=== PATIENT | male | born 1980 | race Caucasian/White ===

== ENCOUNTER 2017-10-24 04:07 | Emergency (ER) | payer BC ==
[2017-10-24] MEDS ORDERED: Ketorolac 60 MG/2 ML SDV IM ONE (04:45)
--- NOTE | 2017-10-24 05:18 | EDM.PDOC ---
ED HPI GENERAL MEDICAL PROBLEM - General Chief Complaint: General Stated Complaint: GOUT- RIGHT KNEE Time Seen by Provider: 10/24/17 04:42 - History of Present Illness INITIAL COMMENTS - FREE TEXT/NARRATIVE: HISTORY AND PHYSICAL: History of present illness: Patient 37-year-old male history of gouty arthritis presents a concern of right knee pain he states is typical gouty flareup that responds well to Toradol. Review of systems: As per history of present illness and below otherwise all systems reviewed and negative. Past medical history: As per history of present illness and as reviewed below otherwise noncontributory. Surgical history: As per history of present illness and as reviewed below otherwise noncontributory. Social history: No reported history of drug or alcohol abuse. Family history: As per history of present illness and as reviewed below otherwise noncontributory. Physical exam: HEENT: Atraumatic, normocephalic, pupils reactive, negative for conjunctival pallor or scleral icterus, mucous membranes moist, throat clear, neck supple, nontender, trachea midline. Lungs: Clear to auscultation, breath sounds equal bilaterally, chest nontender. Heart: S1S2, regular, negative for clicks, rubs, or JVD. Abdomen: Soft, nondistended, nontender. Negative for masses or hepatosplenomegaly. Negative for costovertebral tenderness. Pelvis: Stable nontender. Genitourinary: Deferred. Rectal: Deferred. Extremities: Right knee has some pain to palpation minimal swelling no erythema no warmth CMS neurovascular is unremarkable Neuro: Awake, alert, oriented. Cranial nerves II through XII unremarkable. Cerebellum unremarkable. Motor and sensory unremarkable throughout. Exam nonfocal. Diagnostics: Patient refused x-ray and lab analysis Therapeutics: Toradol 60 mg IM Impression: #1 right knee pain history of gouty arthritis Definitive disposition and diagnosis as appropriate pending reevaluation and review of above. - Related Data Allergies Allergy/AdvReac Type Severity Reaction Status Date / Time No Known Allergies Allergy Verified 01/06/15 23:21 Home Meds: Home Meds Allopurinol [Zyloprim] 1 tab PO DAILY 03/14/16 [History] Colchicine [Colcrys] 1.5 - 2 tab PO ASDIRECTED PRN 03/14/16 [History] Past Medical History HEENT History: Reports: None Other HEENT History: strep throat Cardiovascular History: Reports: None Respiratory History: Reports: Other (See Below) Other Respiratory History: hx sports induced asthma as a child Gastrointestinal History: Reports: None Genitourinary History: Reports: Other (See Below) Other Genitourinary History: intermittent hematuria, Musculoskeletal History: Reports: Gout Other Musculoskeletal History: Preston schlatters L need Neurological History: Reports: None Psychiatric History: Reports: None Hematologic History: Reports: None Immunologic History: Reports: None Oncologic (Cancer) History: Reports: None Dermatologic History: Reports: None - Infectious Disease History Infectious Disease History: Reports: Chicken Pox - Past Surgical History Head Surgeries/Procedures: Reports: None Musculoskeletal Surgical History: Reports: Arthroscopic Knee Social & Family History - Family History Family Medical History: Noncontributory - Tobacco Use Smoking Status *Q: Never Smoker - Recreational Drug Use Recreational Drug Use: No ED ROS GENERAL - Review of Systems Review Of Systems: ROS reveals no pertinent complaints other than HPI. ED EXAM, GENERAL - Physical Exam Exam: See Below (See dictation) Course - Vital Signs Last Recorded V/S: Last Vital Signs Temp 36.6 C 10/24/17 04:11 Pulse 82 10/24/17 04:11 Resp 16 10/24/17 04:11 BP 107/57 L 10/24/17 04:11 Pulse Ox 98 10/24/17 04:11 - Orders/Labs/Meds Orders: Active Orders 24 hr Category Date Time Status Knee 3V Rt [CR] Stat Exams 10/24/17 04:15 Stop Req Meds: Medications Discontinued Medications Generic Name Dose Route Start Last Admin Trade Name Freq PRN Reason Stop Dose Admin Ketorolac Tromethamine 60 mg 10/24/17 04:45 10/24/17 05:03 Toradol IM 10/24/17 04:46 60 mg ONETIME ONE Administration Departure - Departure Time of Disposition: 05:17 Disposition: Home, Self-Care 01 Condition: Good Clinical Impression: Knee pain, Gout attack - Discharge Information Referrals: PCP,None [Primary Care Provider] - Additional Instructions: The following information is given to patients seen in the emergency department who are being discharged to home. This information is to outline your options for follow-up care. We provide all patients seen in our emergency department with a follow-up referral. The need for follow-up, as well as the timing and circumstances, are variable depending upon the specifics of your emergency department visit. If you don't have a primary care physician on staff, we will provide you with a referral. We always advise you to contact your personal physician following an emergency department visit to inform them of the circumstance of the visit and for follow-up with them and/or the need for any referrals to a consulting specialist. The emergency department will also refer you to a specialist when appropriate. This referral assures that you have the opportunity for followup care with a specialist. All of these measure are taken in an effort to provide you with optimal care, which includes your followup. Under all circumstances we always encourage you to contact your private physician who remains a resource for coordinating your care. When calling for followup care, please make the office aware that this follow-up is from your recent emergency room visit. If for any reason you are refused follow-up, please contact the [facility] emergency department at and asked to speak to the emergency department charge nurse. [facility] [address] [place] [id number] Indomethacin as prescribed follow-up primary medical doctor and/or clinic above as needed as discussed and return as needed as discussed - My Orders Last 24 Hours: My Active Orders 10/24/17 04:15 Knee 3V Rt [CR] Stat - Assessment/Plan Last 24 Hours: My Active Orders 10/24/17 04:15 Knee 3V Rt [CR] Stat
[2017-10-24 05:26] VITALS: BP 109/57
== END 2017-10-24 05:26 | disposition home or self-care (01) ==
LOC: MW.ED 04:07
DX: M10.9 Gout, unspecified (principal); M25.561 Pain in right knee; Z79.899 Other long term (current) drug therapy
CPT/HCPCS: 96372; 99284; J1885; 99283

== ENCOUNTER 2019-11-12 02:50 | Emergency (ER) | payer BC ==
[2019-11-12] MEDS ORDERED: Ibuprofen 600 MG Tab PO ONE (03:21)
--- NOTE | 2019-11-12 03:50 | EDM.PDOC ---
ED HPI GENERAL MEDICAL PROBLEM - General Chief Complaint: Lower Extremity Injury/Pain Stated Complaint: GOUT ATTACK Time Seen by Provider: 11/12/19 02:51 - History of Present Illness INITIAL COMMENTS - FREE TEXT/NARRATIVE: History of present illness: 39-year-old male presenting with right foot pain for the last week. He reports history of gout for which he usually takes colchicine when the pain worsens. He has been at work all day and the pain just became unbearable so he came straight here. He reports that he had previously been on allopurinol daily but was at a maximal dose and it still was not controlling his gout symptoms so he was prescribed febuxostat, which initially he had been prescribed the brand name and he could not afford this. He was seen 2 days ago at the primary care clinic for this episode of gout and he was prescribed this medication again, however even the generic 1 was more than he could afford so he did not pick it up. He was Toradol and IM Solu- Medrol in the clinic and prescribed steroid Dosepak for discharge which he has been taking for the last 2 days. He did also sustain a plantar puncture wound 1 week ago which is not in the area of the pain. Review of systems: As per history of present illness and below otherwise all systems reviewed and negative. Past medical history: As per history of present illness and as reviewed below otherwise noncontributory. Gout Surgical history: As per history of present illness and as reviewed below otherwise noncontributory. Social history: No reported history of drug or alcohol abuse. Family history: As per history of present illness and as reviewed below otherwise noncontributory. Physical exam: GEN: no acute distress, well appearing HEENT: Atraumatic, normocephalic, mucous membranes moist, Neck: supple. Lungs: No respiratory distress. Heart: RRR Extremities: Tender to palpation right foot. Mildly erythematous over the dorsum of the foot. Plantar surface shows healing puncture wound that appears clean and dry with no surrounding erythema and no signs of infection. Neurovascularly intact. Neuro: Awake, alert, oriented. Neuro Exam nonfocal. Skin: warm, dry, no lesions, very mild erythema of the dorsum of the foot Diagnostics: [] Therapeutics: [] MDM: Impression: [] Plan: [] Definitive disposition and diagnosis as appropriate pending reevaluation and review of above. Right Feet Pain Score (Numeric/FACES): 10 - Related Data Allergies Allergy/AdvReac Type Severity Reaction Status Date / Time No Known Allergies Allergy Verified 11/12/19 03:01 Home Meds: Home Meds Colchicine [Colcrys] 1.5 - 2 tab PO ASDIRECTED PRN 03/14/16 [History] Acetaminophen/HYDROcodone [[place] 325-5 MG] 1 tab PO Q8H PRN #15 tablet 11/12/19 [Rx] Past Medical History HEENT History: Reports: None Other HEENT History: strep throat Cardiovascular History: Reports: None Respiratory History: Reports: Other (See Below) Other Respiratory History: hx sports induced asthma as a child Gastrointestinal History: Reports: None Genitourinary History: Reports: Other (See Below) Other Genitourinary History: intermittent hematuria, Musculoskeletal History: Reports: Gout Other Musculoskeletal History: Tad schlatters L need Neurological History: Reports: None Psychiatric History: Reports: None Hematologic History: Reports: None Immunologic History: Reports: None Oncologic (Cancer) History: Reports: None Dermatologic History: Reports: None - Infectious Disease History Infectious Disease History: Reports: Chicken Pox - Past Surgical History Head Surgeries/Procedures: Reports: None Musculoskeletal Surgical History: Reports: Arthroscopic Knee Social & Family History - Family History Family Medical History: Noncontributory - Tobacco Use Smoking Status *Q: Never Smoker Second Hand Smoke Exposure: No - Caffeine Use Caffeine Use: Reports: None - Recreational Drug Use Recreational Drug Use: No Review of Systems - Review of Systems Review Of Systems: See Below (See HPI) ED EXAM, GENERAL - Physical Exam Exam: See Below (See HPI) Course - Vital Signs Last Recorded V/S: Last Vital Signs Temp 97.8 F 11/12/19 02:58 Pulse 97 11/12/19 02:58 Resp 20 11/12/19 02:58 BP 133/97 H 11/12/19 02:58 Pulse Ox 97 11/12/19 02:58 - Orders/Labs/Meds Meds: Medications Discontinued Medications Generic Name Dose Route Start Last Admin Trade Name Freq PRN Reason Stop Dose Admin Hydrocodone Bitart/Acetaminophen 1 tab 11/12/19 03:59 11/12/19 04:18 [place] 325-5 Mg PO 11/12/19 04:00 1 tab ONETIME ONE Administration Ibuprofen 600 mg 11/12/19 03:21 11/12/19 03:26 Motrin PO 11/12/19 03:22 600 mg ONETIME ONE Administration - Re-Assessments/Exams Free Text/Narrative Re-Assessment/Exam: 11/12/19 04:20 Plan of care with patient. Continue the steroids. Will also E prescribed prescription for pain medications for the patient until the steroids have fully kicked in. Discussed recommendations to follow-up with orthopedic as his gout has been ongoing with continued flares that is not very well controlled. He agrees with this plan. Was able to get a ride and therefore Lortab was ordered to assist with pain control. Departure - Departure Time of Disposition: 04:21 Disposition: Home, Self-Care 01 Clinical Impression: Gout attack Qualifiers: Gout site: foot Gout etiology: unspecified cause Laterality: right Qualified Code(s): M10.9 - Gout, unspecified - Discharge Information Prescriptions: Acetaminophen/HYDROcodone [[place] 325-5 MG] 1 tab PO Q8H PRN #15 tablet PRN Reason: Pain (Severe 7-10) Referrals: PCP,None [Primary Care Provider] - Forms: ED Department Discharge Additional Instructions: The following information is given to patients seen in the emergency department who are being discharged to home. This information is to outline your options for follow-up care. We provide all patients seen in our emergency department with a follow-up referral. The need for follow-up, as well as the timing and circumstances, are variable depending upon the specifics of your emergency department visit. If you don't have a primary care physician on staff, we will provide you with a referral. We always advise you to contact your personal physician following an emergency department visit to inform them of the circumstance of the visit and for follow-up with them and/or the need for any referrals to a consulting s pecialist. The emergency department will also refer you to a specialist when appropriate. This referral assures that you have the opportunity for follow-up care with a specialist. All of these measure are taken in an effort to provide you with optimal care, which includes your follow-up. Under all circumstances we always encourage you to contact your private physician who remains a resource for coordinating your care. When calling for follow-up care, please make the office aware that this follow-up is from your recent emergency room visit. If for any reason you are refused follow-up, please contact the [facility] Emergency Department at and asked to speak to the emergency department charge nurse. [facility] [address], [address] [place] [address] Sepsis Event Note (ED) - Evaluation Sepsis Screening Result: No Definite Risk - Focused Exam Vital Signs: Vital Signs Temp Pulse Resp BP Pulse Ox 11/12/19 02:58 97.8 F 97 20 133/97 H 97
[2019-11-12] MEDS ORDERED: Acetaminophen/HYDROcodone 325-5 MG Tab PO ONE (03:59)
[2019-11-12 04:36] VITALS: BP 111/67; PULSE 75
== END 2019-11-12 04:35 | disposition home or self-care (01) ==
LOC: MW.ED 02:50
DX: M10.9 Gout, unspecified (principal)
CPT/HCPCS: 99283; A9270; 99282

== ENCOUNTER 2025-02-17 03:50 | Emergency (ER) | payer BC ==
[2025-02-17] MEDS ORDERED: Sodium Chloride 0.9% 2.5 ML Syringe FLUSH PRN (04:03)
[2025-02-17] MEDS ORDERED: Sodium Chloride 0.9% 10 ML Syringe FLUSH PRN (04:03)
[2025-02-17] MEDS: Ketorolac 30 MG/ML SDV IM ONE (04:15)
[2025-02-17 04:23] LABS: BASOPHILS ABSOLUTE AUTO 0.09 K/uL (0.00-0.20); BASOPHILS PERCENT AUTO 0.9 % (0.0-1.0); EOSINOPHILS ABSOLUTE AUTO 0.13 K/uL (0.00-0.45); EOSINOPHILS PERCENT AUTO 1.3 % (0.0-6.0); IMMATURE GRAN ABSOLUTE AUTO 0.02 K/uL (0.00-0.05); IMMATURE GRAN PERCENT AUTO 0.2 % (0.0-0.4); LYMPHOCYTES ABSOLUTE AUTO 2.60 K/uL (1.00-4.80); LYMPHOCYTES PERCENT AUTO 25.6 % (24.0-44.0); MEAN PLATELET VOLUME 10.1 fL (9.4-12.4); MONOCYTES ABSOLUTE AUTO 0.77 K/uL (0.00-0.80); MONOCYTES PERCENT AUTO 7.6 % (0.0-8.0); NEUTROPHILS ABSOLUTE AUTO 6.55 K/uL (1.80-7.70); NEUTROPHILS PERCENT AUTO 64.4 % (41.0-71.0); NRBC ABSOLUTE 0.00 K/uL (0.00-0.02); NRBC PERCENT 0.0 /100WBC (0.0-0.2); PLATELET COUNT,PLT 262 K/uL (150-400); RED BLOOD CELL COUNT 4.60 M/uL (4.52-5.90); WHITE BLOOD CELL COUNT,WBC 10.16 K/uL (3.9-11.3)
[2025-02-17] MEDS: methylPREDNISolone Sodium Succinate 125 MG/2 ML SDV IVPUSH ONE (04:27)
[2025-02-17 04:44] LABS: A/G RATIO 1.3 (0.9-1.6); ALANINE AMINOTRANSFERASE,ALT 19 IU/L (14-63); ASPARTATE AMNIOTRANSFERASE,AST 18 IU/L (15-37); BILIRUBIN TOTAL 0.3 mg/dL (0.2-1.0); BLOOD UREA NITROGEN,BUN 16 mg/dL (7.0-18.0); CARBON DIOXIDE,CO2 24.7 mmol/L (21.0-32.0); CHLORIDE,CL 105 mmol/L (98-107); CREATININE 1.0 mg/dL (0.8-1.3); GLUCOSE RANDOM 104 mg/dL (74-106); POTASSIUM,K 4.4 mmol/L (3.5-5.1); PROTEIN TOTAL,TP 6.7 g/dL (6.4-8.2); SODIUM,NA 140 mmol/L (136-148)
[2025-02-17 04:54] LABS: ESTIMATED GFR 96 mL/min (>60)
[2025-02-19 07:30] VITALS: BP 114/70; PULSE 71
== END 2025-02-17 05:04 ==
LOC: MW.ED 03:50
DX: M10.9 Gout, unspecified (principal); Z79.899 Other long term (current) drug therapy
CPT/HCPCS: 36415; 80053; 85025; 85652; 86140; 96372; 96374; 99283; J1885; J2919